=== PATIENT | male | born 1955 | race Caucasian/White ===

== ENCOUNTER 2019-02-22 20:23 | Emergency (ER) | payer OTHER ==
[2019-02-22] MEDS ORDERED: Sodium Chloride 0.9% 10 ML Syringe FLUSH PRN (20:27)
--- NOTE | 2019-02-22 20:46 | EDM.PDOC ---
ED HPI GENERAL MEDICAL PROBLEM - General Chief Complaint: Chest Pain Stated Complaint: SHARP PAINS IN CHEST Time Seen by Provider: 02/22/19 20:35 Source of Information: Reports: Patient, Family, RN, RN Notes Reviewed History Limitations: Reports: No Limitations - History of Present Illness INITIAL COMMENTS - FREE TEXT/NARRATIVE: Pt to ER with c/o left sided chest pain. He states the pain began yesterday, very dull. He states he felt it if he moved wrong or bent over to pick something up, or if he coughed. He states he also felt it in his left shoulder blade. Patient states today at supper the pain became very intense and sharp. He points to a pinpoint spot under the left pectoris. Patient states if he coughs "it would kill him". Denies productive cough, fever or chills, N/V/D. He states he has never had a AR in the past. States he is diabetic and takes oral agents. He states he routinely is lifting heavy things and pulling himself up into equipment. He states he has also had shingles in the past and that felt as if he "had a broken rib". This was about 3 years ago. 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 States he does still have his gallbladder. 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 Left Posterior Shoulder Pain Score (Numeric/FACES): 7 - Related Data Allergies Allergy/AdvReac Type Severity Reaction Status Date / Time No Known Allergies Allergy Verified 07/11/18 07:28 Home Meds: Home Meds Aspirin [Ecotrin] 325 mg PO DAILY 07/11/18 [History] B2/Vit A,C & E/Lut/Zeaxanth/Mn [Icaps] 1 tab PO DAILY 07/11/18 [History] Cyanocobalamin (Vitamin B-12) [B-12 Dots] 500 mcg PO DAILY 07/11/18 [History] Folic Acid 1 mg PO DAILY 07/11/18 [History] Lisinopril/Hydrochlorothiazide [Lisinopril-HCTZ 10-12.5 MG] 2 tab PO DAILY 07/11 [History] Metoprolol Succinate [Toprol Xl] 25 mg PO DAILY 07/11/18 [History] Pravastatin [Pravachol] 40 mg PO DAILY 07/11/18 [History] amLODIPine [Norvasc] 5 mg PO DAILY 07/11/18 [History] glipiZIDE [Glipizide Xl] 5 mg PO BID 07/11/18 [History] metFORMIN [Glucophage XR] 500 mg PO BID 07/11/18 [History] Pioglitazone HCl 15 mg PO DAILY 02/22/19 [History] Past Medical History HEENT History: Reports: Impaired Vision Other HEENT History: wears glasses Cardiovascular History: Reports: High Cholesterol, Hypertension Respiratory History: Reports: None Genitourinary History: Reports: Renal Calculus, UTI, Recurrent Musculoskeletal History: Reports: Arthritis Neurological History: Reports: None Psychiatric History: Reports: None Endocrine/Metabolic History: Reports: Diabetes, Type II, Obesity/BMI 30+ Hematologic History: Reports: None, Other (See Below) Other Hematologic History: spirocytosis Immunologic History: Reports: None Oncologic (Cancer) History: Reports: None Dermatologic History: Reports: None - Infectious Disease History Infectious Disease History: Reports: Chicken Pox, Shingles - Past Surgical History Head Surgeries/Procedures: Reports: None GI Surgical History: Reports: Other (See Below) Other GI Surgeries/Procedures: spleenectomy Musculoskeletal Surgical History: Reports: Knee Replacement, Shoulder Replacement Social & Family History - Family History Family Medical History: Noncontributory - Tobacco Use Smoking Status *Q: Unknown Ever Smoked - Caffeine Use Caffeine Use: Reports: Coffee - Recreational Drug Use Recreational Drug Use: No ED ROS GENERAL - Review of Systems Review Of Systems: ROS reveals no pertinent complaints other than HPI. ED EXAM, GENERAL - Physical Exam Exam: See Below Exam Limited By: No Limitations General Appearance: Alert, WD/WN, Mild Distress Eye Exam: Bilateral Eye: EOMI, Normal Inspection Ears: Normal External Exam, Hearing Grossly Normal Nose: Normal Inspection Throat/Mouth: Normal Inspection, Normal Voice, No Airway Compromise Head: Atraumatic, Normocephalic Neck: Normal Inspection, Supple, Non-Tender, Full Range of Motion Respiratory/Chest: No Respiratory Distress Cardiovascular: Normal Peripheral Pulses, Regular Rate, Rhythm, No Gallop, No JVD, No Murmur, No Rub, Other (trace ankle/pedal edema) Peripheral Pulses: 2+: Radial (L), Radial (R) GI/Abdominal: Normal Bowel Sounds, Soft, Non-Tender (Male) Exam: Deferred Rectal (Males) Exam: Deferred Back Exam: Normal Inspection, Full Range of Motion Extremities: Normal Inspection, Normal Range of Motion, Non-Tender, Normal Capillary Refill, No Pedal Edema Neurological: Alert, Oriented, CN II-XII Intact, Normal Cognition, Normal Gait, Normal Reflexes, No Motor/Sensory Deficits Psychiatric: Normal Affect, Normal Mood Skin Exam: Warm, Dry, Intact, Normal Color, No Rash Lymphatic: No Adenopathy EKG INTERPRETATION EKG Date: 02/22/19 Time: 20:27 Rhythm: NSR Rate (Beats/Min): 75 [place]: RAD-Right [place] Deviation P-Wave: Present QRS: Normal ST-T: Normal QT: Normal Comparison: NA - No Prior EKG Course - Vital Signs Last Recorded V/S: Last Vital Signs Temp 98.0 F 02/22/19 20:32 Pulse 75 02/22/19 20:32 Resp 16 02/22/19 20:32 BP 164/67 H 02/22/19 20:32 Pulse Ox 99 02/22/19 20:32 - Orders/Labs/Meds Orders: Active Orders 24 hr Category Date Time Status EKG Documentation Completion [RC] STAT Care 02/22/19 20:27 Active Peripheral IV Care [RC] . DIRECTED Care 02/22/19 20:27 Active Chest 1V Frontal [CR] Stat Exams 02/22/19 20:27 Taken Humerus Rt [CR] Urgent Exams 02/22/19 21:28 Stop Req Ribs 2V wo Chest Lt [CR] Urgent Exams 02/22/19 22:34 Taken UA RFX YULIET AND CULT IF INDIC [URIN] Stat Lab 02/22/19 20:27 Ordered Orphenadrine [Norflex] Med 02/22/19 22:00 Active 60 mg IM Q12H Sodium Chloride 0.9% [Saline Flush] Med 02/22/19 20:27 Active 10 ml FLUSH ASDIRECTED PRN Peripheral IV Insertion Adult [OM.PC] Stat Oth 02/22/19 20:27 Ordered Medication Orders Orphenadrine Citrate (Norflex) 60 mg IM Q12H ZHANE Last Admin: 02/22/19 21:57 Dose: 60 mg Sodium Chloride (Saline Flush) 10 ml FLUSH ASDIRECTED PRN PRN Reason: Keep Vein Open Last Admin: 02/22/19 20:40 Dose: 10 ml Labs: Laboratory Tests 02/22/19 02/22/19 02/22/19 Range/Units 20:41 20:41 20:41 WBC 14.2 H (5.0-10.0) 10^3/uL RBC 4.40 L (4.6-6.2) 10^6/uL Hgb 13.5 L D (14.0-18.0) g/dL Hct 40.2 (40.0-54.0) % MCV 91.4 (80-100) fL MCH 30.7 (27.0-34.0) pg MCHC 33.6 (33.0-35.0) g/dL Plt Count 290 (150-450) 10^3/uL Neut % (Auto) 65.0 (42.2-75.2) % Lymph % (Auto) 23.3 (20.5-50.1) % [place] % (Auto) 10.3 H (2-8) % Eos % (Auto) 1.1 (1.0-3.0) % Baso % (Auto) 0.3 (0.0-1.0) % PT 11.2 (9.0-12.0) SEC INR 1.1 (0.9-1.2) Sodium 137 (135-145) mmol/L Potassium 3.6 (3.6-5.0) mmol/L Chloride 99 L (101-111) mmol/L Carbon Dioxide 26.0 (21.0-31.0) mmol/L Anion Gap 15.6 BUN 19 H (7-18) mg/dL Creatinine 1.1 (0.6-1.3) mg/dL Est Cr Clr Drug Dosing 70.05 mL/min Estimated GFR (MDRD) > 60 BUN/Creatinine Ratio 17.27 Glucose 173 H (74-105) mg/dL Calcium 9.2 (8.4-10.2) mg/dl Total Bilirubin 0.8 (0.2-1.0) mg/dL AST 29 (10-42) IU/L ALT 22 (10-60) IU/L Alkaline Phosphatase 61 (42-121) IU/L Troponin I < 0.02 (0.00-0.02) ng/ml B-Natriuretic Peptide 20 (0-100) pg/ml Total Protein 7.3 (6.7-8.2) g/dl Albumin 4.1 (3.2-5.5) g/dl Globulin 3.2 Albumin/Globulin Ratio 1.28 Meds: Medications Generic Name Dose Route Start Last Admin Trade Name Freq PRN Reason Stop Dose Admin Orphenadrine Citrate 60 mg 02/22/19 22:00 02/22/19 21:57 Norflex IM 60 mg Q12H ZHANE Administration Sodium Chloride 10 ml 02/22/19 20:27 02/22/19 20:40 Saline Flush FLUSH 10 ml ASDIRECTED PRN Administration Keep Vein Open Discontinued Medications Generic Name Dose Route Start Last Admin Trade Name Freq PRN Reason Stop Dose Admin Morphine Sulfate 2 mg 02/22/19 21:07 02/22/19 21:18 Morphine IVPUSH 02/22/19 21:08 2 mg ONETIME ONE Administration Ondansetron HCl 4 mg 02/22/19 21:07 02/22/19 21:16 Zofran IV 02/22/19 21:08 4 mg ONETIME ONE Administration - Radiology Interpretation Free Text/Narrative:: Chest xray: FINDINGS: Lungs: Unremarkable. No consolidation. Pleural space: Unremarkable. No pleural effusion. No pneumothorax. Heart/Mediastinum: Unremarkable. No cardiomegaly. Bones/joints: Bilateral shoulder replacement. IMPRESSION: No acute finding. Thank you for allowing us to participate in the care of your patient. Dictated and Authenticated by: Caren Sosa MD 02/22/2019 8:49 PM Central Time ([place] & [place]) Ribs left without chest: FINDINGS: Bones/joints: There is a total left shoulder prosthesis is in place. Soft tissues: There is a BB marker in place at the level of the left posterior 10th rib. There is no sign of rib fracture or other bony abnormality. IMPRESSION: No sign of rib fracture or other acute bony abnormality. Thank you for allowing us to participate in the care of your patient. Dictated and Authenticated by: Hernando Alfaro DO 02/22/2019 11:56 PM Central Time ([place] & [place]) See rad report Departure - Departure Time of Disposition: 23:58 Disposition: Home, Self-Care 01 Reason for Transfer *Q: Other Condition: Fair Clinical Impression: Intercostal muscle strain Qualifiers: Encounter type: initial encounter Qualified Code(s): S29.011A - Strain of muscle and tendon of front wall of thorax, initial encounter Instructions: Muscle Strain, [id number] Referrals: PCP,None [Primary Care Provider] - Forms: ED Department Discharge Additional Instructions: May use Tylenol and/or Ibuprofen as directed for pain Alternate Ice and heat as tolerated Deep breathe and cough as much as possible to reduce the risk of pneumonia Sit upright to sleep as tolerated Follow up with your primary care facility RX: Flexeril - My Orders Last 24 Hours: My Active Orders 02/22/19 20:27 EKG Documentation Completion [RC] STAT Peripheral IV Care [RC] . DIRECTED Chest 1V Frontal [CR] Stat UA RFX YULIET AND CULT IF INDIC [URIN] Stat Sodium Chloride 0.9% [Saline Flush] 10 ml FLUSH ASDIRECTED PRN Peripheral IV Insertion Adult [OM.PC] Stat 02/22/19 21:28 Humerus Rt [CR] Urgent 02/22/19 22:00 Orphenadrine [Norflex] 60 mg IM Q12H 02/22/19 22:34 Ribs 2V wo Chest Lt [CR] Urgent - Assessment/Plan Last 24 Hours: My Active Orders 02/22/19 20:27 EKG Documentation Completion [RC] STAT Peripheral IV Care [RC] . DIRECTED Chest 1V Frontal [CR] Stat UA RFX YULIET AND CULT IF INDIC [URIN] Stat Sodium Chloride 0.9% [Saline Flush] 10 ml FLUSH ASDIRECTED PRN Peripheral IV Insertion Adult [OM.PC] Stat 02/22/19 21:28 Humerus Rt [CR] Urgent 02/22/19 22:00 Orphenadrine [Norflex] 60 mg IM Q12H 02/22/19 22:34 Ribs 2V wo Chest Lt [CR] Urgent
[2019-02-22] MEDS ORDERED: Ondansetron 4 MG/2 ML SDV IV ONE (21:07)
[2019-02-22] MEDS ORDERED: Morphine 2 MG/ML Syringe IVPUSH ONE (21:07)
[2019-02-22 21:08] LABS: ANION GAP 15.6; CHLORIDE,CL 99 mmol/L (101-111); SODIUM,NA 137 mmol/L (135-145)
== END 2019-02-23 00:16 | disposition home or self-care (01) ==
LOC: DL.ED 20:23
DX: S29.011A Strain of muscle and tendon of front wall of thorax, initial encounter (principal); E78.00 Pure hypercholesterolemia, unspecified; I10 Essential (primary) hypertension; E11.9 Type 2 diabetes mellitus without complications; Z79.899 Other long term (current) drug therapy; Z79.82 Long term (current) use of aspirin; Z79.84 Long term (current) use of oral hypoglycemic drugs; E66.9 Obesity, unspecified; Z68.41 Body mass index [BMI] 40.0-44.9, adult; X50.9XXA Other and unspecified overexertion or strenuous movements or postures, initial encounter
CPT/HCPCS: 36415; 71045; 71100; 80053; 83880; 84484; 85025; 85610; 93005; 96372; 96374; 96375; 99285; J2270; J2360; J2405